=== PATIENT | female | born 1955 | race Caucasian/White ===

== ENCOUNTER → 2017-05-23 | Outpatient (CLI) | payer OTHER ==
[~2017-05-23] MED LIST: ASPIRIN325 PO; FISH OIL 1,0001 EAC5 PO; IBUPROFEN200 M2 PO; MULTIVITAMINS PO
== END ==
LOC: RAD 14:11
DX: Z12.31 Encounter for screening mammogram for malignant neoplasm of breast (principal)

== ENCOUNTER → 2017-10-04 | Outpatient (CLI) | payer OTHER | LOC: ULTRA 13:59 | DX: N95.0 Postmenopausal bleeding (principal) ==

== ENCOUNTER → 2017-10-05 | Outpatient (CLI) | payer OTHER ==
[2017-10-05 11:01] LABS: CALCIUM 9.5 mg/dL (8.5-10.1); CREATININE 0.9 mg/dL (0.6-1.0); POTASSIUM 4.1 mmol/L (3.5-5.1)
== END ==
LOC: CAT 10:31
PROVIDERS: Nurse Practitioner
DX: N83.291 Other ovarian cyst, right side (principal)

== ENCOUNTER → 2018-05-29 | Outpatient (CLI) | payer OTHER | LOC: RAD 10:31 | DX: Z12.31 Encounter for screening mammogram for malignant neoplasm of breast (principal) ==

== ENCOUNTER → 2018-06-05 | Outpatient (CLI) | payer OTHER | LOC: MRI 10:59 | DX: M17.11 Unilateral primary osteoarthritis, right knee (principal); M25.461 Effusion, right knee; M25.761 Osteophyte, right knee; M23.91 Unspecified internal derangement of right knee ==

== ENCOUNTER → 2018-07-06 | Outpatient (CLI) | payer OTHER ==
[~2018-07-06] MED LIST changes: +DUAVEE 0.45-201 EACH PO; +IBUPROFEN 800800 M1 PO; -IBUPROFEN200 M2 PO; +LOPRESSOR25 PO
--- NOTE | ~2018-07-06 | EXE ---
[facility] [employer]an [place] [address] STRESS ECHOCARDIOGRAM Name: DELMY FRIEND Room #: REG [facility]#: [id number] Admission: 07/06/18 Attend Phys: Tramaine Whitmore MD Discharge: Date of : 57 Date of Service: 07/06/18 1713 Report #: [id number] THIS REPORT FOR: //name// APPROVED REPORT Study performed: 07/06/2018 10:30:22 Exam: Stress Echocardiogram Indication: Chest pain, abnormal EKG Patient Location: Out-Patient Stress Nurse: Annabelle Martins RN, Jordana Momin RN Supervising Physician: Tramaine Whitmore MD Status: routine Ht: 5 ft 7 in HR: 69 bpm BP: 114/72 mmHg Rhythm: NSR/PVCs Medical History Allergies: Demerol Cardiac Risk Factors: FHX of CAD Procedure The patient underwent an Exercise Stress Test using the Darek Protocol. Blood pressure, heart rate, and EKG were monitored. An Echocardiogram was performed by research technician in four stages in quad fashion. At peak stress, four selected images were obtained and placed side by side with resting images for comparison. Stress Test Details Stress Test: Exercise stress testing was performed using a Darek protocol. HR Resting HR: 69 bpm Max Heart Rate (APMHR): 159 bpm Max HR Achieved: 173 bpm Target HR (85% APMHR): 135 bpm % of APMHR: 108 Recovery HR: 100 bpm HR response to stress: Normal HR response to stress BP Resting BP: 114/72 mmHg Max BP: 201/82 mmHg ECG Resting ECG: Sinus Rhythm Stress ECG: Sinus Rhythm, nonspecific ST-T abnormalities [facility] [address] [place] [address] STRESS ECHOCARDIOGRAM Name: DELMY FRIEND Room #: REG CL [facility]#: [id number] Admission: 07/06/18 Attend Phys: Tramaine Whitmore MD Discharge: Date of : 57 Date of Service: 07/06/18 1713 Report #: [id number] ST Change: borderline for ischemia Maximum ST Deviation: 1.5 mm Arrhythmia: Non-sustained VT Clinical Reason for Termination: Completed protocol, moderate fatigue Exercise duration: 7 min 25 sec Highest Stage Achieved: Stage 3: 3.4 mph at 14% grade. Exercise capacity: 10.40 METs Pre-Stress Echo The resting Echocardiogram showed normal left ventricular contractility with an estimated Ejection Fraction of about 55-60%. No significant valvular abnormalities noted. Post-Stress Echo The stress Echocardiogram showed abnormal left ventricular contractility with an estimated Ejection Fraction of about 55%. The stress Echocardiogram demonstrated wall motion abnormality in the inferior wall. Conclusion Clinical Response: Indeterminant Exercise Capacity: Below Average Stress ECG Response: Equivocal Stress Echo Images: Ischemic Abnormal stress echo study with borderline EKG changes, nonsustained VT and wall motion abnormality. Other Information Study Quality: Adequate <Conclusion> Abnormal stress echo study with borderline EKG changes, nonsustained VT and wall motion abnormality. <ELECTRONICALLY SIGNED> By: Tramaine Whitmore MD 07/06/181712 12 12 Tramaine Whitmore MD /INF
== END ==
LOC: CV 10:08
DX: R07.9 Chest pain, unspecified (principal)

== ENCOUNTER → 2018-07-07 | Outpatient (CLI) | payer OTHER ==
[~2018-07-07] VITALS: Ht 170.2 cm; Wt 81.6 kg
--- NOTE | ~2018-07-07 | EKG ---
[place] [address] [facility] [place] [employer] [place] [address] ELECTROCARDIOGRAM REPORT Name: DELMY FRIEND Room #: REG CL [facility]#: [id number] Admission: 07/07/18 Attend Phys: Tramaine Whitmore MD Discharge: Date of : 57 Report #: [id number] THIS REPORT FOR: //name// [facility] Test Date: 2018-07-07 Test Time: 07:15:23 Pat Name: DELMY FRIEND Department: Room: Gender: F Clerical Stock Inspector: : [id number] Requested By: Tramaine Whitmore Order Number: [id number] MD: Tristan Mixon Measurements Intervals Deer Rate: 78 P: 60 NH: 146 QRS: 46 QRSD: 94 T: 58 QT: 397 QTc: 453 Interpretive Statements Sinus rhythm Multiple ventricular premature complexes Baseline wander in lead(s) V4 Compared to ECG 12/30/2010 11:04:25 Ventricular premature complex(es) now present Electronically Signed On 07-07-2018 8:06:25 PUTTIER by Tristan Mixon [email or web address] <ELECTRONICALLY SIGNED> By: Tristan Mixon MD 07/07/18 0806 4 4 Tristan Mixon MD /TRINA
--- NOTE | ~2018-07-07 | CATHLAB ---
[facility] [address] [place] [address] INVASIVE PROCEDURE REPORT Name: DELMY FRIEND MYLA [facility] [id number] Admission: 07/07/18 Attend Phys: Tramaine Whitmore MD Discharge: Date of : 57 Date of Service: 07/07/18 1017 Report #: [id number] THIS REPORT FOR: //name// APPROVED REPORT Study performed: 07/07/2018 07:11:05 Patient Details Patient Status: Out-Patient Room #: The patient is a 62 year-old female Event Personnel Tramaine Whitmore Welfare Manager, Sulema Long RN RN, Rae, Shasta Monitor, Tatiana Lizarraga Partnoy, Nancy RTR, RUBBER PRESS OPERATOR Monitor Procedures Performed Left Heart Cath w/or w/o Coronaries [id number] [facility] Indication Arrhythmia, Dyspnea, Positive stress test, Chest pain Risk Factors Hypercholesterolemia Procedure Narrative The Right Groin^ was infiltrated with 1% Lidocaine subcutaneous anesthesia. A PINNACLE 4FR Sheath #[id number] sheath was inserted into the RFA^. Coronary angiography was performed using coronary diagnostic catheters. The right coronary system was accessed and visualized with a JR4 catheter. The left coronary system was accessed and visualized with a JL4 catheter. The left ventricle was accessed and visualized with a PIGTAIL catheter. Left ventricular/Aortic Valve gradient assessed via catheter pullback. Left ventriculogram was performed in 30 degree projection. Hemostasis was obtained with manual pressure following sheath removal without any complications. The patient tolerated the procedure well and there were no complications associated with the procedure. There was no hematoma. Intraoperative Conscious Sedation Sedation start time: 8.15 Case end Time: 8.42 Fentanyl 25 mcg Versed 1.5 mg [facility] [place] [address] INVASIVE PROCEDURE REPORT Name: DELMY FRIEND Room #: REG [facility]#: [id number] Admission: 07/07/18 Attend Phys: Tramaine Whitmore MD Discharge: Date of : 57 Date of Service: 07/07/18 1017 Report #: [id number] Fluoro Time: 1.50 minutes Dose: DAP 2455.00 cGycm2 313 mGy Contrast Type and Amount: Omnipaque 85 ml Coronary Angiography The patient's coronary anatomy is right dominant. Diagnostic Cath Left Main This is a patent vessel, with no flow-limiting lesions. LAD This is a moderate size caliber vessel, traveling down the anterior wall. There are no flow-limiting lesions in the proximal and mid segments. There may be minimal luminal irregularities in the distal segment. Diagonal 1 This is a patent vessel, with no flow-limiting lesions. Circumflex This is a moderate size caliber vessel, with no flow-limiting lesions. It supplies 2 obtuse marginal arteries. OM1 This is a patent vessel, with no flow-limiting lesions. OM2 This is a patent vessel, with no flow-limiting lesions. Right Coronary This is a dominant vessel, with no flow-limiting lesions. R PDA This is a patent vessel, with no flow-limiting lesions. RPLV This is a patent vessel, with no flow-limiting lesions. Left Ventriculography The left ventricle is normal in size with normal contractility. The left ventricular ejection fraction is estimated to be >55%. Hemodynamics The aortic pressure is 144/86 mmHg with a mean of 102 mmHg. The left ventricular pressure is 156/17 mmHg with a mean of mmHg. The left ventricular end diastolic pressure is 22 mmHg. There was no gradient across the aortic valve upon pullback. Pullback from the left ventricle to the aorta revealed no gradient across the aortic valve. Conclusion 1. Angiographically normal coronary arteries. There may be minimal luminal irregularities in the distal LAD. [facility] [address] [place] [address] INVASIVE PROCEDURE REPORT Name: DELMY FRIEND Room #: REG [facility] [id number] Admission: 07/07/18 Attend Phys: Tramaine Whitmore MD Discharge: Date of : 57 Date of Service: 07/07/18 1017 Report #: [id number] 2. There is normal LV systolic function. 3. Recommend aggressive risk factor management. <ELECTRONICALLY SIGNED> By: Tramaine Whitmore MD 07/07/18 1017 16 Tramaine Whitmore MD /ROSHAN
[2018-07-07 07:34] VITALS: BP 126/60
[2018-07-07 07:35] LABS: HEMATOCRIT 40.7 % (37.0-47.0); HEMOGLOBIN 14.2 gm/dL (12.0-15.0); MCH 30.9 pg (26.0-34.0); MCHC 34.9 g/dL (28.0-37.0); MCV 88.6 fL (80.0-100.0); RBC 4.6 mil/uL (4.20-5.00); RDW 13.2 % (10.5-14.5); WBC 7.3 thou/uL (4.0-11.0)
[2018-07-07 07:45] LABS: ANION GAP 13 mmol/L (7-16); BUN 15 mg/dL (7-18); CALCIUM 8.8 mg/dL (8.5-10.1); CHLORIDE 105 mmol/L (98-107); CO2 24 mmol/L (21-32); CREATININE 0.7 mg/dL (0.6-1.0); GLUCOSE 121 mg/dL (74-106); POTASSIUM 3.6 mmol/L (3.5-5.1); SODIUM 142 mmol/L (136-145)
[2018-07-07 07:51] LABS: CHOLESTEROL 267 mg/dL (<200); HDL CHOLESTEROL 45 mg/dL (>40); LDL CHOLESTEROL 194 mg/dL (<100); TC:HDL 5.9 Ratio (Not establshd); TRIGLYCERIDE 142 mg/dL (<150); VLDL 28 mg/dL (<40)
== END | disposition home or self-care (01) ==
LOC: CATH 06:40
PROVIDERS: Internal Medicine Cardiovascular Disease
DX: R94.39 Abnormal result of other cardiovascular function study (principal); E78.00 Pure hypercholesterolemia, unspecified; E78.5 Hyperlipidemia, unspecified; Z90.710 Acquired absence of both cervix and uterus; Z98.890 Other specified postprocedural states; Z79.899 Other long term (current) drug therapy; Z87.891 Personal history of nicotine dependence; Z88.8 Allergy status to other drugs, medicaments and biological substances

== ENCOUNTER → 2019-05-25 | Outpatient (CLI) | payer OTHER | LOC: RAD 13:38 | DX: Z12.31 Encounter for screening mammogram for malignant neoplasm of breast (principal) ==

== ENCOUNTER → 2020-05-29 | Outpatient (CLI) | payer OTHER | LOC: RAD 12:48 | PROVIDERS: ATTEND Nurse Practitioner | DX: Z12.31 Encounter for screening mammogram for malignant neoplasm of breast (principal) ==

== ENCOUNTER → 2020-09-24 | Outpatient (CLI) | payer OTHER ==
[2020-09-24 11:29] LABS: ABSOLUTE NEUTROPHILS 5.8 thou/uL (1.4-8.2); BASOPHILS 0.5 % (0.0-2.0); EOSINOPHILS 1.7 % (0.0-3.0); HEMATOCRIT 43.9 % (37.0-47.0); HEMOGLOBIN 14.4 gm/dL (12.0-15.0); LYMPHOCYTES 25.9 % (24.0-44.0); MCH 29.4 pg (26.0-34.0); MCHC 32.9 g/dL (28.0-37.0); MCV 89.5 fL (80.0-100.0); MONOCYTES 7.5 % (1.0-8.0); PLATELET COUNT 296 thou/uL (150-400); POLYS 64.4 % (36.0-66.0); RBC 4.91 mil/uL (4.20-5.00); RDW 13.2 % (10.5-14.5)
[2020-09-24 11:53] LABS: ALBUMIN 4.4 g/dL (3.4-5.0); ANION GAP 9 mmol/L (7-16); BUN 11 mg/dL (7-18); CALCIUM 9.5 mg/dL (8.5-10.1); CHLORIDE 102 mmol/L (98-107); CHOLESTEROL 284 mg/dL (<200); CO2 28 mmol/L (21-32); CREATININE 0.9 mg/dL (0.6-1.0); GLUCOSE 99 mg/dL (74-106); HDL CHOLESTEROL 58 mg/dL (>40); LDL CHOLESTEROL 183 mg/dL (<100); POTASSIUM 3.5 mmol/L (3.5-5.1); SGOT 23 U/L (15-37); SGPT 32 U/L (30-65); SODIUM 139 mmol/L (136-145); TC:HDL 4.9 Ratio (Not establshd); TOTAL BILIRUBIN 0.6 mg/dL (0.2-1.0); TOTAL PROTEIN 7.8 g/dL (6.4-8.2); TRIGLYCERIDE 216 mg/dL (<150); VLDL 43 mg/dL (<40)
[2020-09-24 21:05] LABS: TESTOSTERONE* 31 ng/dL (3-41)
== END ==
LOC: RAD 10:10 → LAB 10:10
PROVIDERS: ATTEND Nurse Practitioner
DX: Z00.00 Encounter for general adult medical examination without abnormal findings (principal); Z78.0 Asymptomatic menopausal state; Z87.891 Personal history of nicotine dependence

== ENCOUNTER → 2020-11-04 | Outpatient (CLI) | payer OTHER ==
[~2020-11-04] MED LIST changes: +ATORVASTATIN CA20 MG PO; +LEXAPRO 10 MG T10 M2 PO
[2020-11-04 12:36] LABS: HEMATOCRIT 40.6 % (37.0-47.0); HEMOGLOBIN 13.9 gm/dL (12.0-15.0); MCH 30.6 pg (26.0-34.0); MCHC 34.2 g/dL (28.0-37.0); MCV 89.6 fL (80.0-100.0); RBC 4.53 mil/uL (4.20-5.00); RDW 13.4 % (10.5-14.5); WBC 9.4 thou/uL (4.0-11.0)
[2020-11-04 12:38] LABS: URINE BILIRUBIN NEGATIVE (Negative); URINE BLOOD TRACE (Negative); URINE CLARITY CLEAR; URINE COLOR YELLOW; URINE GLUCOSE-RANDOM* NEGATIVE (Negative); URINE KETONES NEGATIVE (Negative); URINE LEUKOCYTES-REFLEX NEGATIVE (Negative); URINE NITRITE-REFLEX NEGATIVE (Negative); URINE PROTEIN (DIPSTICK) NEGATIVE (Negative); URINE SPECIFIC GRAVITY 1.025 (1.005-1.035); URINE UROBILINOGEN 0.2 E.U./dl (0.2-1.0)
[2020-11-04 12:47] LABS: ALBUMIN 4.2 g/dL (3.4-5.0); CALCIUM 9.1 mg/dL (8.5-10.1); CREATININE 0.8 mg/dL (0.6-1.0); POTASSIUM 3.9 mmol/L (3.5-5.1)
== END ==
LOC: LAB 09:00
PROVIDERS: ATTEND Orthopaedic Surgery
DX: Z01.812 Encounter for preprocedural laboratory examination (principal); M17.11 Unilateral primary osteoarthritis, right knee

== ENCOUNTER → 2020-11-06 | Outpatient (CLI) | payer OTHER | LOC: LAB 14:19 | PROVIDERS: Student in an Organized Health Care Education/Training Program; ATTEND Orthopaedic Surgery | DX: Z01.812 Encounter for preprocedural laboratory examination (principal); Z20.822 Contact with and (suspected) exposure to COVID-19 ==

== ENCOUNTER 2020-11-10 12:02 | Observation (INO) | payer OTHER ==
[2020-11-04 12:36] LABS: HEMATOCRIT 40.6 % (37.0-47.0); HEMOGLOBIN 13.9 gm/dL (12.0-15.0); MCH 30.6 pg (26.0-34.0); MCHC 34.2 g/dL (28.0-37.0); MCV 89.6 fL (80.0-100.0); RBC 4.53 mil/uL (4.20-5.00); RDW 13.4 % (10.5-14.5); WBC 9.4 thou/uL (4.0-11.0)
[2020-11-04 12:38] LABS: URINE BILIRUBIN NEGATIVE (Negative); URINE BLOOD TRACE (Negative); URINE CLARITY CLEAR; URINE COLOR YELLOW; URINE GLUCOSE-RANDOM* NEGATIVE (Negative); URINE KETONES NEGATIVE (Negative); URINE LEUKOCYTES-REFLEX NEGATIVE (Negative); URINE NITRITE-REFLEX NEGATIVE (Negative); URINE PROTEIN (DIPSTICK) NEGATIVE (Negative); URINE SPECIFIC GRAVITY 1.025 (1.005-1.035); URINE UROBILINOGEN 0.2 E.U./dl (0.2-1.0)
[2020-11-04 12:47] LABS: ALBUMIN 4.2 g/dL (3.4-5.0); CALCIUM 9.1 mg/dL (8.5-10.1); CREATININE 0.8 mg/dL (0.6-1.0); POTASSIUM 3.9 mmol/L (3.5-5.1)
[~2020-11-10] VITALS: Ht 170.2 cm; Wt 80.6 kg
--- NOTE | ~2020-11-10 | O ---
[facility] [place] [address] OPERATIVE REPORT Name: DELMY FRIEND Room #: 150-2 [facility] M.R.#: [id number] Admission: 11/10/20 Attend Phys: Jim Wilde MD Discharge: Date of : 57 Report #: [id number] THIS REPORT FOR: cc: Andre Sorto,Andre Wilde,Jim Kirk MD ~ DATE OF SERVICE: 11/10/2020 PREOPERATIVE DIAGNOSIS: Right knee osteoarthritis. POSTOPERATIVE DIAGNOSIS: Right knee osteoarthritis. PROCEDURE: Right total knee arthroplasty using Navio robotic patient care nursing assistant. SURGEON: Jim Wilde MD. REQUIREMENTS MANAGER: Brittaney Ruiz PA-C. INDICATIONS FOR REQUIREMENTS MANAGER: Throughout the case, extensive retraction and manipulation of the knee was required. This was afforded to me by my patient care nursing assistant. ANESTHESIA: LMA with adductor canal block. IMPLANTS: [employer] size 5 Journey II BCS Oxinium femur, a size 4 tibia, size 10 constrained polyethylene, size 35 patella. TOURNIQUET TIME: 50 minutes. ESTIMATED BLOOD LOSS: 25 mL. COMPLICATIONS: None. SPECIMENS: None. CONDITION UPON LEAVING THE OPERATING ROOM: Stable. INDICATIONS FOR PROCEDURE: The patient is a 65-year-old female with right knee osteoarthritis. She had failed conservative measures for this; and after discussion with her, she elected for right total knee arthroplasty. DESCRIPTION OF PROCEDURE: Risks, benefits, alternatives, and complications were discussed in detail with the patient including, but not limited to, risk of anesthesia, risk of damage to nerves, arteries, blood vessels, risk for infection, bleeding, risk for continued knee pain, need for reoperation. Informed consent was obtained from the patient. The right knee was [facility] [address] [place] [address] OPERATIVE REPORT Name: DELMY FRIEND Room #: 150-2 [facility] M.R.#: [id number] Admission: 11/10/20 Attend Phys: Jim Wilde MD Discharge: Date of : 57 Report #: [id number] appropriately marked in the preoperative holding area. IV Ancef was given for preoperative antibiotics. Adductor canal block was placed by Anesthesia. She was brought to the operating room and placed in supine position on operating room table. LMA anesthesia was induced without complication. Tourniquet was placed on the right thigh. Right lower extremity was prepped and draped in normal sterile fashion. Timeout was performed properly identifying the patient and procedure as well as the instrumentation and implants. All in the operating room were in agreement. Right lower extremity was exsanguinated. Tourniquet was inflated. Tourniquet time was 50 minutes. Standard midline approach to the knee was made with 10 blade through the skin. Dissection was taken down sharply to the fascia and deep flaps were developed medially and laterally. Fresh 10 blade was used to make a medial parapatellar arthrotomy and the knee was inspected. There was severe tricompartmental osteoarthritis. ACL and PCL were removed sharply. Reference pins were placed in the femur and the tibia. The knee was then digitally mapped using the [employer] robotic system. Intraoperative plan was made and we sized the size 5 femur with a size 4 tibia and a 10 spacer. After acceptance of the intraoperative plan, the distal femoral cut was made with Navio bur. Distal femoral cutting block was pinned in place and chamfer cuts were made. Attention was turned to the tibia. Remainder of the menisci were removed with Bovie cautery. Tibial resection guide was pinned in place using the Navio for placement and tibial resection was made. After this, flexion and extension gaps were checked and found to have good balance laterally in flexion and extension. She did open medially about 3-4 mm and it was felt we could make up for this with a constrained implant. After this, tibia was sized, found to be a size 4. Size 4 tibial trial was placed, pinned and punched. Size 5 femoral trial was placed and box cut was made. This was then trialed with a size 10 polyethylene. Size 10 polyethylene demonstrated 1-2 mm of laxity laterally and 3-4 mm medially throughout range of motion. It was felt we could make up for this with a constrained implant. 9 mm of bone was resected from the posterior surface of the patella and a size 35 patellar trial button was placed. Knee was taken through range of motion, found to be stable, found to have good patellar tracking. Trial components were removed. Bony ends were thoroughly irrigated with normal saline. A final size 4 tibia, size 5 Journey II BCS Oxinium femur, and a size 35 patella were cemented in place using standard cementation techniques. While the cement cured, a periarticular injection consisting of morphine, ropivacaine, epinephrine and Toradol was placed around the knee joint capsule. After the cement cured, the tourniquet was deflated. Hemostasis was obtained with Bovie cautery. A final size 10 constrained polyethylene was placed. A gram of vancomycin was placed deep in the joint. Fascia was closed with 0 Vicryl, skin was closed with 2-0 Vicryl, 3-0 Monocryl, [facility] [address] [place] [address] OPERATIVE REPORT Name: DELMY FRIEND Room #: 150-2 [facility]#: [id number] Admission: 11/10/20 Attend Phys: Jim Wilde MD Discharge: Date of : 57 Report #: [id number] Dermabond and a KIMANI dressing was applied. The patient tolerated this procedure well and went to the recovery room under the care of Anesthesia postoperatively. By: 1622 1652 Jim Wilde MD /nt
[2020-11-10 13:10] VITALS: BP 145/78
[2020-11-10 17:33] VITALS: BP 128/69
[2020-11-10 19:04] VITALS: BP 120/61
--- NOTE | 2020-11-10 19:51 | NUR ---
ASSUMED PT CARE AROUND 1719. PT ALERT X ORIENTED X4. WAS ON 2L/NC/O2 WHEN PT ARRIVED. 02 SAT WAS ON 100%. AROUND 1814, NC REMOVED AND PT ON ROOM AIR.IV RT HAND. TEDS/SCDS ON. PICCO DRESSING IN PLACE. PAIN CONTROLLED BY PAIN MEDS. FALL PRECAUTION IN PLACE. CALL LIGHT IN REACH. PT WILL CALL APPROPRIATELY. SHIFT REPORT GIVEN TO MANAGER RELIABILITY NURSE.
[2020-11-11 03:19] VITALS: BP 131/74
--- NOTE | 2020-11-11 04:11 | NUR ---
ASSESSMENT COMPLETED. PT IS PLEASANT AND COOPERATIVE. R KNEE WITH KIMANI DRSG C/D/I, POLAR CLAUDIA IN PLACE. PT ALSO HAS TEDS AND SCDS IN PLACE. AFEBRILE. SATTING OK ON ROOM AIR,USING I/S W/A. VOIDING OKAY. DENIES N/V, GOOD INTAKE-REGULAR DIET.GETTING NORCO PRN FOR PAIN. MUCH OF PAIN IS IN SCAPULAR REGION AND KNEE IS JUST ABOUT 1-2. NO FURTHER CONCERNS AT THIS TIME.
[2020-11-11 04:53] LABS: HEMATOCRIT 33.4 % (37.0-47.0); HEMOGLOBIN 11.3 gm/dL (12.0-15.0); MCH 30.4 pg (26.0-34.0); MCHC 33.8 g/dL (28.0-37.0); RBC 3.71 mil/uL (4.20-5.00); WBC 12.6 thou/uL (4.0-11.0)
[2020-11-11 07:35] VITALS: BP 103/63
--- NOTE | 2020-11-11 11:44 | NUR ---
Assumed care of pt at 0700. Pt a&ox4. Pain controlled with prn pain meds. Dressing c/d/i. Polar care in place. KECIA acevedo and SCDs in place. Pt worked with physical therapy this am and had some issues with knee buckling. Will work with physical therapy again in the afternoon and possible d/c to home is she does well. Call light within reach. Fall precautions in place. Will continue to monitor.
--- NOTE | 2020-11-11 14:29 | NUR ---
ASSESSMENT: CM REVIEWED CHART AND SPOKE WITH PATIENT AT THE BEDSIDE. PT IS S/P R TKA. PT LIVES IN A HOUSE WITH HER SPOUSE. PT HAS A STEP TO ENTER AND A FLIGHT OF STEPS WITH HANDRAILS TO BEDROOM. PT REPORTS NORMALLY BEING FULLY INDEPENDENT WITH ADLS AND AMBULATION. PT IS NEEDING A WALKER FOR HOME. CM NOTIFIED [facility] WHO REPORTS THEY ARE OUT OF NETWORK WITH INSURANCE. CM ALSO TRIED [facility] WHO REPORTS BEING OON. CM SPOKE WITH [facility] PATIENT WHO REPORTS THEY DO NOT ACCEPT TAYE. CM SPOKE WITH CM DIRECTOR AND WALKER APPROVED THROUGH [facility] AND WILL BE BILLED TO CM DEPT. CM NOTIFIED LIASON FROM [facility] WHO WILL DELIVER WALKER TO PATIENT. PT HAS OUTPATIENT THERAPY ARRANGED AT [facility] TO BEGIN TOMORROW. PT REPORTS NO FURTHER NEEDS FROM CM.
[2020-11-11 14:33] VITALS: BP 103/63
[2020-11-11 14:55] VITALS: BP 103/63
== END 2020-11-11 15:48 | disposition home or self-care (01) ==
LOC: OR 12:02 → TBA 12:02 → OR 15:42 → 4S 17:22 → OR 17:23 → 4S 11-11 15:48
PROVIDERS: ADMIT Orthopaedic Surgery; ATTEND Orthopaedic Surgery
DX: M17.11 Unilateral primary osteoarthritis, right knee (principal); Z79.899 Other long term (current) drug therapy
CPT/HCPCS: 27447; S2900; 50010; 50101; 50415; 50954; 51130; 51225; 51320; 53000; 53078; 53365; 54118; 56527; 56528; 57095; 57103; 57110; 57127; 57180; 64042; 70005

== ENCOUNTER → 2020-12-23 | Outpatient (CLI) | payer OTHER ==
[2020-12-23 12:57] LABS: ABSOLUTE NEUTROPHILS 7.6 thou/uL (1.4-8.2); BASOPHILS 0.7 % (0.0-2.0); EOSINOPHILS 2.9 % (0.0-3.0); HEMATOCRIT 37.9 % (37.0-47.0); HEMOGLOBIN 12.7 gm/dL (12.0-15.0); LYMPHOCYTES 23.2 % (24.0-44.0); MCHC 33.6 g/dL (28.0-37.0); MCV 89.2 fL (80.0-100.0); MONOCYTES 9.6 % (1.0-8.0); PLATELET COUNT 347 thou/uL (150-400); POLYS 63.6 % (36.0-66.0); RBC 4.24 mil/uL (4.20-5.00); RDW 13.5 % (10.5-14.5); WBC 11.9 thou/uL (4.0-11.0)
== END ==
LOC: LAB 12:15
PROVIDERS: ATTEND Nurse Practitioner
DX: R22.41 Localized swelling, mass and lump, right lower limb (principal)

== ENCOUNTER → 2021-05-28 | Outpatient (CLI) | payer OTHER | LOC: RAD 11:25 | PROVIDERS: ATTEND Nurse Practitioner | DX: Z12.31 Encounter for screening mammogram for malignant neoplasm of breast (principal) ==